=== PATIENT | male | born 1985 | race African-American/Black ===

== ENCOUNTER → 2016-12-05 22:10 | Emergency (ER) | payer OTHER ==
--- NOTE | ~2016-12-05 | CR142 ---
[facility] A Service [facility] RADIOLOGY TEXT RESULTS PATIENT: AMBROCIO SEPULVEDA LOCATION: [facility] : [birth year] UNIT #: [id number] AGE: [address]: ERIN PETERSON DOCTOR SEX: M ORDER DR: [id number] [facility] [place] [place], [place] [address] [id number] MR#: [id number] Acc #: [id number] NAME: AMBROCIO SEPULVEDA : 1985 SEX: M STUDY DATE/TIME: 12/05/2016 21:31 UNIT: BHARAT ROOM: STUDY DESCRIPTION: CR Hand Min 3 Views Rt Attending Physician: Ed Rodo Peterson M.D. Ordering Physician: Jose Peterson M.D. Primary Care Physician: [facility] MEDICAL IMAGING REPORT This report is preliminary unless electronic signature is present EXAM Right hand series. DATE OF EXAM 12/05/2016 HISTORY 30-year-old male in the ED with right hand pain and swelling after punching a wall earlier today. TECHNIQUE 3 view right hand series. FINDINGS The exam shows no acute osseous abnormality. Old healed boxer's fracture deformity involving the neck of the fifth metacarpal, unchanged since 09/21/2016. Remainder of the exam is negative. IMPRESSION 1. No acute osseous abnormality. 2. Old healed boxer's fracture of the fifth metacarpal. Dictated by... Fernando Herrera M.D. THIS IS AN ELECTRONICALLY VERIFIED REPORT Fernando Herrera M.D. at 12/06/2016 5:58 AM TAMARA/brady TD: 12/05/2016 23:18 JOB #: [id number] MEDICAL IMAGING REPORT [facility] A Service [facility] RADIOLOGY TEXT RESULTS PATIENT: AMBROCIO SEPULVEDA LOCATION: [facility] : 85 UNIT #: [id number] AGE: [address]: ERIN PETERSON DOCTOR SEX: M ORDER DR: Page 1 of 1 COPY
[~2016-12-05 22:10] MED LIST: CIPRO PO; LORTAB 5/500 TA1 TA1 PO; PYRIDIUM PO; VICODIN
== END | disposition left against medical advice (07) ==
LOC: CED 22:10
DX: Z53.21 Procedure and treatment not carried out due to patient leaving prior to being seen by health care provider (principal)
CPT/HCPCS: 73130